=== PATIENT | female | born 1960 | race Caucasian/White ===

== ENCOUNTER 2016-07-16 16:51 | Outpatient (CLI) | payer OTHER ==
--- NOTE | 2016-07-16 17:55 | DIAGNOSTIC IMAGING REPORT ---
PROCEDURE: XR WRIST MIN 3 VIEWS - LEFT INDICATION: WRIST ARTHRALGIA TECHNIQUE: Four views of the left wrist. COMPARISON: None. FINDINGS: Normal mineralization. No fractures. Normal osseous alignment. No suspicious soft-tissue calcification or radiodense foreign bodies. IMPRESSION: 1. Intact left wrist.
== END 2016-07-16 23:00 ==
LOC: XR SRH 16:51
DX: M25.539 Pain in unspecified wrist (principal)

== ENCOUNTER 2016-07-22 10:56 | Outpatient (CLI) | payer OTHER ==
--- NOTE | 2016-07-22 14:28 | DIAGNOSTIC IMAGING REPORT ---
PROCEDURE: US SOFT TISSUE THYR/NECK/HEAD INDICATION: NECK MASS TECHNIQUE: Kennedy scale and color Doppler sonographic images of the thyroid gland were obtained. COMPARISON: None. FINDINGS: Ultrasound targeted to the right infra auricular symptomatic area demonstrates no evidence of a soft tissue mass, fluid collection or inflammatory process. Area appears to correspond to a bony prominence. There is a 7 mm right submandibular cyst. Left submandibular and parotid glands are normal. IMPRESSION: 1. Right infra auricular symptomatic area appears to correspond to a bony prominence.
== END 2016-07-22 23:00 ==
LOC: US SRH 10:56
DX: M79.9 Soft tissue disorder, unspecified (principal)